=== PATIENT | male | born 1945 | race Caucasian/White ===

== ENCOUNTER 2020-08-01 06:15 | Day surgery (SDC) | payer OTHER ==
[2020-07-29 12:02] LABS: COVID AG,FIA SOURCE NASOPHARYNGEAL
[~2020-08-01] VITALS: Ht 157.5 cm; Wt 68.0 kg
[2020-08-01] MEDS ORDERED: SODIUM CHLORIDE 0.9% 1,000 ML IV ONE (06:30)
[2020-08-01] MEDS ORDERED: MIDAZOLAM HCL 2 MG/2 ML VIAL ONE (07:53)
[2020-08-01] MEDS ORDERED: FentaNYL CITRATE-PF 100 MCG/2 ML VIAL ONE (07:53)
[2020-08-01 07:56] LABS: GLUCOMETER DEV NAME(LOC) SDS.; GLUCOSE,POINT OF CARE 121 MG/DL (70-110)
[2020-08-01] MEDS ORDERED: MethylPREDNISolone SOD SUCC 125 MG/2 ML VIAL ONE (08:43)
[2020-08-01] MEDS ORDERED: MethylPREDNISolone SOD SUCC 125 MG/2 ML VIAL IVP ONE (08:45)
[2020-08-01] MEDS ORDERED: BENZOCAINE 20% 50 MCG/SPRAY 57 GM ONE (18:22)
[2020-08-01] MEDS ORDERED: LIDOCAINE 2% 5 ML JELLY ONE (18:22)
[2020-08-01] MEDS ORDERED: LIDOCAINE 4% 50 ML SOLUTION ONE (18:22)
[2020-08-01] MEDS ORDERED: ALBUTEROL SULFATE 2.5 MG/0.5 ML NEB SOLUTION NEB ONE (18:22)
[2020-08-01] MEDS ORDERED: LIDOCAINE 2% 30 ML JELLY ONE (18:22)
[2020-08-01] MEDS ORDERED: OXYGEN THERAPY IH SCH (20:00)
== END 2020-08-01 09:55 | disposition home or self-care (01) ==
LOC: SURGERY 06:15
PROVIDERS: ATTEND Internal Medicine Critical Care Medicine
DX: J38.4 Edema of larynx (principal); B37.0 Candidal stomatitis; Z20.828 Contact with and (suspected) exposure to other viral communicable diseases
CPT/HCPCS: 31623; 31624; 71045; 82962; 87015; 87070; 87101; 87206; 87220; 87426; 88184; 88185; 93005; C9803; J2250; J2930; J3010; 87205; 88108; 88312; J7613; Z7610

== ENCOUNTER 2024-07-23 06:54 | Day surgery (SDC) | payer MEDICARE, OTHER ==
[~2024-07-23] VITALS: Ht 157.5 cm; Wt 68.1 kg
[2024-07-23] MEDS ORDERED: MIDAZOLAM HCL 2 MG/2 ML VIAL ONE (08:06)
[2024-07-23] MEDS ORDERED: FentaNYL CITRATE PF 100 MCG/2 ML VIAL ONE (08:06)
[2024-07-23 08:21] LABS: GLUCOMETER DEV NAME(LOC) SDS.; GLUCOSE,POINT OF CARE 181 MG/DL (70-110)
[2024-07-23] MEDS ORDERED: SODIUM CHLORIDE 0.9% 0 ML ONE (08:37)
[2024-07-23] MEDS: SODIUM CHLORIDE 0.9% 1,000 ML IV ONE (08:45)
[2024-07-23 09:25] VITALS: PULSE 63; RESP 14; O2SAT 100
[2024-07-23] MEDS ORDERED: MethylPREDNISolone SOD SUCC 125 MG/2 ML VIAL ONE (09:36)
[2024-07-23] MEDS: MethylPREDNISolone SOD SUCC 125 MG/2 ML VIAL IVP ONE (10:17)
[2024-07-23] MEDS ORDERED: HYDR25TA84 PO (10:28)
[2024-07-23] MEDS ORDERED: CHOL200059 PO (10:28)
[2024-07-23] MEDS ORDERED: SENN-376 PO (10:28)
[2024-07-23] MEDS ORDERED: FERR325T27 PO (10:28)
[2024-07-23] MEDS ORDERED: ALBU18HF12 IH (10:28)
[2024-07-23] MEDS ORDERED: PANT-31 PO (10:28)
[2024-07-23] MEDS ORDERED: SIMV-261 PO (10:28)
[2024-07-23] MEDS ORDERED: BUDE10.7 IH (10:28)
[2024-07-23] MEDS ORDERED: LOSA-30 PO (10:28)
[2024-07-23] MEDS ORDERED: CARV25 PO (10:28)
[2024-07-23] MEDS ORDERED: FAMO20 PO (10:28)
[2024-07-23] MEDS ORDERED: LEVE-71 PO (10:28)
[2024-07-23] MEDS ORDERED: FLUT16SP NASAL (10:28)
[2024-07-23] MEDS ORDERED: MONT-35 PO (10:28)
[2024-07-23] MEDS ORDERED: ALBUTEROL SULFATE 2.5 MG/0.5 ML NEB SOLUTION NEB ONE (12:00)
[2024-07-23] MEDS ORDERED: LIDOCAINE 4% 50 ML SOLUTION ONE (12:00)
[2024-07-23] MEDS ORDERED: BENZOCAINE 20% 50 MCG/SPRAY 57 GM ONE (12:00)
[2024-07-23] MEDS ORDERED: LIDOCAINE 2% 11 ML JELLY ONE (12:00)
== END 2024-07-23 11:25 | disposition home or self-care (01) ==
LOC: SURGERY 06:54
PROVIDERS: ATTEND Internal Medicine Critical Care Medicine
DX: R05.3 Chronic cough (principal); R06.2 Wheezing; R49.0 Dysphonia; R04.2 Hemoptysis; R91.8 Other nonspecific abnormal finding of lung field; J38.4 Edema of larynx; B37.0 Candidal stomatitis; J84.10 Pulmonary fibrosis, unspecified; J98.09 Other diseases of bronchus, not elsewhere classified; J98.8 Other specified respiratory disorders; E11.9 Type 2 diabetes mellitus without complications
CPT/HCPCS: 31623; 82962; 87206; 87101; 87220; 87070; 88108; 31624; 94640; 71045; 87015; J3010; J2250; J2919; J7030; J7613; Z7610